=== PATIENT | male | born 1955 | race Caucasian/White ===

== ENCOUNTER → 2018-01-02 | Outpatient (CLI) | payer OTHER ==
[~2018-01-02] MED LIST: ADULT LOW DOSE81 M1 PO; ALLEGRA ALLERG180 MG PO; ASMANEX TW200 MICRO1 IH; ASPIRIN E.C.81 M1 PO; BUTALB-APAP-CA1 EACH PO; CARAFATE1 GM PO; CARDURA4 MG PO; CELEBREX200 MG PO; CITALOPRAM HBR40 M1 PO; CLARINEX5 MG PO; ENDOCET 5-3251 EACH PO; FLUTICASONE PRO16 GM BOTH NARES; Flexeril PO; GABAPENTIN300 MG PO; JANUVIA100 MG PO; NEXIUM40 MG PO; Naprosyn PO; PERCOCET 5/31 TABLET PO; PROTONIX40 MG PO; RHINOCORT AQUA8.6 G1 IH; SIMVASTATIN80 MG PO; SINGULAIR10 MG PO; Singulair PO; VICODIN,LORT1 TABLET PO; WELLBUTRIN XL300 MG PO; ZESTRIL,PRINIVI20 MG PO; Zestril,Prinivil PO; Zocor PO
== END | disposition home or self-care (01) ==
DX: M16.11 Unilateral primary osteoarthritis, right hip (principal); R26.2 Difficulty in walking, not elsewhere classified; M25.551 Pain in right hip; M25.651 Stiffness of right hip, not elsewhere classified; Z74.1 Need for assistance with personal care
CPT/HCPCS: 97161 GP; 97165 GO; 97530 GP; 97535 GO

== ENCOUNTER 2018-01-15 21:52 | Inpatient (IN) | payer OTHER ==
[~2018-01-15] VITALS: Ht 175.3 cm; Wt 104.7 kg
[~2018-01-15 21:52] MED LIST changes: +DYMISTA NASAL S23 GM BOTH NARES; +IRON325 M1 PO; +PROAIR HFA8.5 GM IH; +TOPROL XL50 MG PO; +ULTRAM50 MG PO
[2018-01-16 09:38] VITALS: BP 147/87
[2018-01-16 14:35] LABS: HEMOGLOBIN 12.2 G/DL (12.5-16.6); MCH 28.2 PG (29.0-34.0); MCV 85.5 FL (86-99); PLATELET COUNT 204 K/uL (156-360); RBC DIS.WIDTH-CV 12.3 % (11.8-14.6); RBC DIS.WIDTH-SD 38.5 % (39-53); RED BLOOD COUNT 4.33 M/uL (4.00-5.50); WHITE BLOOD COUNT 9.8 K/uL (4.1-10.2)
[2018-01-16 15:50] VITALS: BP 108/73
[2018-01-16 20:14] VITALS: BP 108/62
[2018-01-17 00:32] VITALS: BP 101/59
[2018-01-17 04:29] VITALS: BP 107/64
[2018-01-17 07:54] VITALS: BP 106/63
[2018-01-17 08:01] LABS: HEMATOCRIT 34.3 % (38.0-50.0); HEMOGLOBIN 11.4 G/DL (12.5-16.6)
[2018-01-17 08:21] LABS: CHLORIDE 102 MEQ/L (99-109); CREATININE 0.8 MG/DL (0.6-1.3); GFR ESTIMATE (CALCULATED) > 59 mL/min/ (58.99-99999); GLUCOSE 138 mg/dL (70-99); POTASSIUM 4.7 MEQ/L (3.7-5.4); SODIUM 135 MEQ/L (136-147); UREA NITROGEN (BUN) 21 mg/dL (9-23)
[2018-01-17 12:18] VITALS: BP 115/64
[2018-01-17 20:30] VITALS: BP 127/73
[2018-01-18 00:10] VITALS: BP 128/72
[2018-01-18 04:30] VITALS: BP 111/80
[2018-01-18 06:00] LABS: HEMATOCRIT 33.4 % (38.0-50.0); HEMOGLOBIN 10.9 G/DL (12.5-16.6); MCV 86.1 FL (86-99)
[2018-01-18 08:00] VITALS: BP 107/64
[2018-01-18] MEDS ORDERED: LOVENOX40 MG/0.4 SC (09:10)
[2018-01-18] MEDS ORDERED: ENDOCET 5-3251 EACH PO (09:10)
[2018-01-18] MEDS ORDERED: OXYCONTIN10 MG PO (09:10)
[2018-01-18 12:00] VITALS: BP 116/64
[2018-01-18 15:39] VITALS: BP 100/65
== END 2018-01-18 16:14 | DRG 470 ==
LOC: ENRESERV 21:52 → 2SOUTH 01-16 08:58 → 3WEST 01-16 15:23
PROVIDERS: Orthopaedic Surgery
PROC: 0SRC0J9 Replacement of Right Knee Joint with Synthetic Substitute, Cemented, Open Approach (ICD-10-PCS; principal; 2018-01-16)
DX: M17.11 Unilateral primary osteoarthritis, right knee (principal); E11.9 Type 2 diabetes mellitus without complications; I10 Essential (primary) hypertension; J45.909 Unspecified asthma, uncomplicated
CPT/HCPCS: 73560; 80048; 82948; 85014; 85018; 85027; 94640; 94640 76; 99202; C1713; J0131; J0690; J1100; J1650; J1885; J2250; J2405; J2795; J7050